=== PATIENT | male | born 1980 | race African-American/Black ===

== ENCOUNTER 2017-12-03 20:41 | Emergency (ER) | payer MEDICAID ==
[~2017-12-03] VITALS: Ht 175.3 cm; Wt 147.0 kg
[2017-12-03 21:38] VITALS: BP 129/70
--- NOTE | 2017-12-03 22:02 | Emergency Room Report ---
History of Present Illness General Chief Complaint: Earache Source: Patient Present Illness HPI This is a 37-year-old male withmovement past medical history. He presents with chief complaint of left ear fullness. Onset for last 2 days. He said he started with a congestion runny nose and now his ears felt very clogged up. Mostly on the left side. No nausea no vomiting. No fever or chills. Nothing made it better. Nothing made it worse. Allergies: Coded Allergies: No Known Allergies (Unverified , 12/03/17) Patient History Past Medical History: none, see triage record, old chart reviewed Past Surgical History: none Pertinent Family History: none Social History: Denies: smoking Immunizations: other Reviewed Nursing Documentation: PMH: Agreed, PSxH: Agreed Nursing Documentation-PMH Past Medical History: No Stated History Review of Systems Eye: Reports: nose congestion, Denies: eye pain, blurred vision ENT: Reports: hearing loss, Denies: ear pain, nose congestion, throat swelling Respiratory: Denies: cough, shortness of breath Cardiovascular: Denies: chest pain, palpitations Gastrointestinal: Denies: abdominal pain, diarrhea, nausea, vomiting Musculoskeletal: Denies: back pain, joint pain Skin: Denies: rash Neurological: Denies: headache, numbness Endocrine: Denies: increased thirst, increased urine Hematologic/Lymphatic: Denies: easy bruising All Other Systems: negative except mentioned in HPI Physical Exam Vital Signs Date Time Temp Pulse Resp B/P (MAP) Pulse Ox O2 Delivery O2 Flow Rate FiO2 12/03/17 21:12 97.8 90 16 129/70 98 Room Air 97.9 vitals normal Sp02 EP Interpretation: reviewed, normal General Appearance: well appearing, no apparent distress, alert Head: normocephalic, atraumatic Eyes: bilateral eye PERRL, bilateral eye EOMI ENT: hearing grossly normal, normal pharynx, other - b/l cerumen impaction Neck: full range of motion, supple, no meningismus Respiratory: chest non-tender, lungs clear, normal breath sounds Cardiovascular #1: regular rate, rhythm, no murmur Gastrointestinal: normal bowel sounds, non tender, no mass, no organomegaly, no bruit, non-distended Musculoskeletal: back normal, gait/station normal, normal range of motion Psychiatric: mood/affect normal Skin: warm/dry Procedures Additional Procedure Procedure Narrative Procedure: Cerumen disimpaction Indication: Cerumen impaction Description: I irrigated both canal with normal saline. Using an ear curette I was able to remove cerumen without difficulty. On reexamination both TMs show fluid behind it. Mild erythema but still with light reflex. Medical Decision Making Diagnostic Impression: Primary Impression: Impacted cerumen of both ears Additional Impression: Bilateral otitis media with effusion ER Course Patient with cerumen impaction. Maybe early otitis with effusion. We'll treat with decongestants first. If better told patient not to fill antibiotics prescription. If having fever or pain go ahead and filled it. No evidence of perforation. No evidence of sepsis or mastoiditis. Last Vital Signs Date Time Temp Pulse Resp B/P (MAP) Pulse Ox O2 Delivery O2 Flow Rate FiO2 12/03/17 21:38 97.9 90 16 129/70 98 Room Air 97.9 Status: improved Disposition: HOME, SELF-CARE Condition: Stable Scripts Amoxicillin* (AMOXIL*) 500 Mg Capsule 500 MG ORAL THREE TIMES A DAY, #21 CAP Prov: BOLA NGUYEN M.D. 12/03/17 Pseudoephedrine Hcl* (SUDAFED*) 60 Mg Tablet 60 MG PO Q6H, #20 TAB Prov: BOLA NGUYEN M.D. 12/03/17 Patient Instructions: Otitis Media With Effusion Additional Instructions: Follow up with your doctor in 7 days. If not better with decongestant in 3 days or having pain or fever, fill antibiotic prescription. Return if worse. BOLA NGUYEN M.D. Dec 03, 2017 22:02
[2017-12-03] MEDS ORDERED: PSEUDOEPHEDRINE60 MG PO (22:03)
[2017-12-03] MEDS ORDERED: AMOXICILLIN500 MG ORAL (22:03)
[2017-12-03 22:09] VITALS: BP 129/70
== END 2017-12-03 22:15 | disposition home or self-care (01) ==
LOC: EMR 22:11
DX: H65.93 Unspecified nonsuppurative otitis media, bilateral (principal); H61.23 Impacted cerumen, bilateral
CPT/HCPCS: 69210; 99284